=== PATIENT | female | born 1965 | race Caucasian/White ===

== ENCOUNTER 2021-05-02 20:17 | Inpatient (IN) | payer MEDICARE, OTHER ==
[~2021-05-02] VITALS: Ht 160 cm; Wt 136.3 kg
[2021-05-02] MEDS ORDERED: MORPHINE SULFATE 4 MG/1 ML DISP.SYRIN IM ONE (21:45)
[2021-05-02 22:22] LABS: BASOPHILS # (AUTO) 0.1 K/uL (0.0-8.0); BASOPHILS % (AUTO) 0.8 % (0.0-2.0); EOSINOPHILS # (AUTO) 0.3 K/uL (0.0-0.7); EOSINOPHILS % (AUTO) 3.4 % (0.0-7.0); HEMATOCRIT 36.8 % (31.2-41.9); HEMOGLOBIN 12.1 g/dL (10.9-14.3); LYMPHOCYTES # (AUTO) 3.2 K/uL (20.0-40.0); LYMPHOCYTES % (AUTO) 34.8 % (20.5-51.5); MEAN CORPUSCULAR HEMOGLOBIN 31.1 uug (24.7-32.8); MEAN CORPUSCULAR HGB CONC 33 g/dL (32.3-35.6); MEAN CORPUSCULAR VOLUME 94.4 fL (75.5-95.3); MONOCYTES # (AUTO) 0.7 K/uL (2.0-10.0); MONOCYTES % (AUTO) 7.1 % (0.0-11.0); NEUTROPHILS % (AUTO) 53.9 % (38.5-71.5); PLATELET COUNT (AUTO) 299 K/uL (179-408); RED BLOOD CELL COUNT(AUTO) 3.89 MIL/uL (3.63-4.92); WHITE BLOOD COUNT (AUTO) 9.3 K/uL (3.8-11.8)
[2021-05-02 22:31] LABS: CARBON DIOXIDE 26 mmol/L (21-32); CHLORIDE 105 mmol/L (98-107); CREATININE 0.9 mg/dL (0.6-1.3); GLUCOSE 192 mg/dL (74-106); POTASSIUM 4.7 mmol/L (3.5-5.1); UREA NITROGEN, BLOOD 23 mg/dL (7-18)
[2021-05-02 22:43] LABS: ALANINE AMINOTRANSFERASE 14 U/L (14-59); ALKALINE PHOSPHATASE 83 U/L (50-136); ASPARTATE AMINOTRANSFERASE 9 U/L (15-37); BILIRUBIN,DIRECT < 0.1 mg/dL (0.0-0.2); BILIRUBIN,TOTAL 0.2 mg/dL (0.2-1.0); TOTAL PROTEIN, SERUM 6.6 g/dL (6.4-8.2)
--- NOTE | 2021-05-02 22:44 | NUR ---
MORPHINE 4MG GIVEN IM LEFT DELTIOD. ACCIDENTLY CHARTED IVP.
[2021-05-02] MEDS ORDERED: MORPHINE SULFATE 4 MG/1 ML DISP.SYRIN ONE (22:49)
--- NOTE | 2021-05-02 23:38 | NUR ---
COVID Negative per [facility] Glazier Regino
[2021-05-03] MEDS ORDERED: VANCOMYCIN 1G/D5W 200 ML PIGGYBACK IV ONE (00:45)
[2021-05-03] MEDS ORDERED: POLY17PO4 PO (01:34)
[2021-05-03] MEDS ORDERED: SENN-261 PO (01:34)
[2021-05-03] MEDS ORDERED: NITR0.4T SL (01:34)
[2021-05-03] MEDS ORDERED: ATOR40TA PO (01:34)
[2021-05-03] MEDS ORDERED: ATROPINE (01:34)
[2021-05-03] MEDS ORDERED: MIRT-93 PO (01:34)
[2021-05-03] MEDS ORDERED: PANT40TA49 PO (01:34)
[2021-05-03] MEDS ORDERED: MAGN500P40 PO (01:34)
[2021-05-03] MEDS ORDERED: FLUT16SP16 NS (01:34)
[2021-05-03] MEDS ORDERED: OXYC5TAB3 PO (01:34)
[2021-05-03] MEDS ORDERED: DIVA-78 PO (01:34)
[2021-05-03] MEDS ORDERED: FOLI1TAB94 PO (01:34)
[2021-05-03] MEDS ORDERED: PIOG15TA8 PO (01:34)
[2021-05-03] MEDS ORDERED: METF-442 PO (01:34)
[2021-05-03] MEDS ORDERED: CLOZ100T32 PO ×2 (01:34)
[2021-05-03] MEDS ORDERED: CYCL5TAB PO (01:34)
[2021-05-03] MEDS ORDERED: MULT-594 PO (01:34)
[2021-05-03] MEDS ORDERED: ACET-2154 PO (01:34)
[2021-05-03] MEDS ORDERED: PROM118S5 PO (01:34)
[2021-05-03] MEDS ORDERED: ALBU2.5V13 IH (01:34)
[2021-05-03] MEDS ORDERED: FURO20TA4 PO (01:34)
[2021-05-03] MEDS ORDERED: GLIP5TAB13 PO (01:34)
[2021-05-03] MEDS ORDERED: ASPI81TA31 PO (01:34)
[2021-05-03] MEDS ORDERED: LOSA50TA39 PO (01:34)
[2021-05-03] MEDS ORDERED: CLON0.1T PO (01:34)
[2021-05-03] MEDS ORDERED: MAGN400C PO (01:34)
[2021-05-03] MEDS ORDERED: CHLO100T24 PO (01:34)
[2021-05-03] MEDS ORDERED: MELO-105 PO (01:34)
[2021-05-03] MEDS ORDERED: MAG30ORA PO (01:34)
[2021-05-03] MEDS ORDERED: ZOLP5TAB8 PO (01:34)
[2021-05-03] MEDS ORDERED: BISA10SU61 RC (01:34)
[2021-05-03] MEDS ORDERED: CALC-494 PO (01:34)
[2021-05-03] MEDS ORDERED: CYAN100T44 PO (01:34)
[2021-05-03] MEDS ORDERED: NA P133E RC (01:34)
[2021-05-03] MEDS ORDERED: MORPHINE SULFATE 4 MG/1 ML DISP.SYRIN ONE (01:44)
[2021-05-03] MEDS ORDERED: MORPHINE SULFATE 4 MG/1 ML DISP.SYRIN IV ONE (01:45)
[2021-05-03] MEDS ORDERED: ONDANSETRON 4 MG/2 ML VIAL IV PRN (02:00)
[2021-05-03] MEDS ORDERED: CLONIDINE HCL 0.1 MG TABLET PO PRN (02:00)
[2021-05-03] MEDS ORDERED: MAG HYDROX/AL HYDROX/SIMETH 30 ML LIQUID UDC PO PRN (02:00)
[2021-05-03] MEDS ORDERED: BISACODYL 10 MG SUPP.RECT RC PRN (02:00)
[2021-05-03] MEDS ORDERED: DEXTROSE 50% 50 ML DISP.SYRIN IV PRN (02:00)
[2021-05-03] MEDS ORDERED: ACETAMINOPHEN 325 MG TABLET PO PRN (02:00)
[2021-05-03] MEDS ORDERED: ALBUTEROL SULFATE 2.5 MG/ 0.5 ML NEBU IH PRN (02:00)
[2021-05-03] MEDS ORDERED: FLEET ENEMA 133 ML BOTTLE RC PRN (02:00)
[2021-05-03] MEDS ORDERED: NITROGLYCERIN 0.4 MG/TAB BOTTLE SL PRN (02:00)
--- NOTE | 2021-05-03 02:00 | NUR ---
Patient has $1,642.00 in brady. Patient refused to have valuables placed in safe.
--- NOTE | 2021-05-03 02:03 | NUR ---
Transfered to 3rd floor Med Surg floor via transport team.
[2021-05-03 02:25] VITALS: BP 120/58
[2021-05-03] MEDS ORDERED: MAGNESIUM HYDROXIDE 30 ML LIQUID UDC PO PRN (02:45)
[2021-05-03] MEDS ORDERED: CYCLOBENZAPRINE HCL 10 MG TABLET PO PRN (02:45)
[2021-05-03] MEDS ORDERED: PIPERACILLIN SODIUM/TAZOBACTAM 3.375 G in IV DEXTROSE 5% 50 ML IV ONE (03:00)
[2021-05-03] MEDS ORDERED: PIPERACILLIN/TAZOBACTAM/D5W 50 ML IV ONE (04:04)
[2021-05-03] MEDS: OXYCODONE HCL 5 MG TABLET PO PRN ×2 (04:45→17:17)
[2021-05-03] MEDS ORDERED: PANTOPRAZOLE SODIUM 40 MG TABLET.DR PO SCH (07:00)
[2021-05-03] MEDS: PANTOPRAZOLE SODIUM 40 MG TABLET.DR PO SCH (07:28)
[2021-05-03 08:09] VITALS: BP 126/64
[2021-05-03] MEDS: BLOOD SUGAR DIAGNOSTIC 1 EACH STRIP VI SCH ×4 (08:13→21:11)
[2021-05-03] MEDS: INSULIN REGULAR, HUMAN 300 UNIT/3 ML VIAL SQ PRN ×4 (08:20→21:35)
[2021-05-03] MEDS: METFORMIN HCL 500 MG TABLET PO SCH ×2 (08:22→17:11)
[2021-05-03] MEDS: MELOXICAM 7.5 MG TABLET PO SCH (08:39)
[2021-05-03] MEDS: LOSARTAN POTASSIUM 50 MG TABLET PO SCH (08:39)
[2021-05-03] MEDS: FOLIC ACID 1 MG TABLET PO SCH (08:39)
[2021-05-03] MEDS: MULTIVITAMINS,THERAPEUTIC TABLET PO SCH (08:39)
[2021-05-03] MEDS: DIVALPROEX 500 MG TABLET.DR PO SCH ×2 (08:39→17:11)
[2021-05-03] MEDS: MIRALAX 17 GM POWD.PACK PO SCH (08:40)
[2021-05-03] MEDS: FUROSEMIDE 20 MG TABLET PO SCH (08:41)
[2021-05-03] MEDS: ASPIRIN 81 MG TAB.CHEW PO SCH (08:49)
[2021-05-03] MEDS: FLUTICASONE PROP NASAL SPRAY 16 GM BOTTLE NS SCH (08:49)
[2021-05-03] MEDS: MAGNESIUM OXIDE 400 MG TABLET PO SCH (08:49)
[2021-05-03] MEDS: CLOZAPINE 25 MG TABLET PO SCH (08:52)
[2021-05-03] MEDS ORDERED: CYANOCOBALAMIN 100 MCG TABLET PO SCH (09:00)
[2021-05-03] MEDS ORDERED: CLOZAPINE 100 MG TABLET PO SCH ×2 (09:00)
[2021-05-03] MEDS ORDERED: PIOGLITAZONE HCL 15 MG TABLET PO SCH (09:00)
[2021-05-03 09:44] LABS: BASOPHILS # (AUTO) 0.1 K/uL (0.0-8.0); BASOPHILS % (AUTO) 0.9 % (0.0-2.0); EOSINOPHILS # (AUTO) 0.3 K/uL (0.0-0.7); EOSINOPHILS % (AUTO) 4.6 % (0.0-7.0); HEMATOCRIT 35.2 % (31.2-41.9); HEMOGLOBIN 11.7 g/dL (10.9-14.3); LYMPHOCYTES % (AUTO) 39.3 % (20.5-51.5); MEAN CORPUSCULAR HEMOGLOBIN 31.8 uug (24.7-32.8); MEAN CORPUSCULAR HGB CONC 33 g/dL (32.3-35.6); MEAN CORPUSCULAR VOLUME 95.8 fL (75.5-95.3); MONOCYTES # (AUTO) 0.5 K/uL (2.0-10.0); MONOCYTES % (AUTO) 6.2 % (0.0-11.0); NEUTROPHILS # (AUTO) 3.7 K/uL (1.8-8.9); PLATELET COUNT (AUTO) 264 K/uL (179-408); RED BLOOD CELL COUNT(AUTO) 3.68 MIL/uL (3.63-4.92); WHITE BLOOD COUNT (AUTO) 7.5 K/uL (3.8-11.8)
[2021-05-03] MEDS: PIPERACILLIN SODIUM/TAZOBACTAM 3.375 G in IV DEXTROSE 5% 50 ML IV SCH ×3 (09:49→21:39)
[2021-05-03 10:00] LABS: BILIRUBIN,TOTAL 0.3 mg/dL (0.2-1.0); CREATININE 0.9 mg/dL (0.6-1.3); MAGNESIUM 1.9 mg/dL (1.8-2.4); PHOSPHOROUS 3.8 mg/dL (2.5-4.9); POTASSIUM 4.2 mmol/L (3.5-5.1)
[2021-05-03] MEDS: VANCOMYCIN IV 2,000 MG in IV DEXTROSE 5% 500 ML IV SCH (10:06)
[2021-05-03 10:08] LABS: THYROID STIMULATING HORMONE 1.969 mIU/mL (0.358-3.740)
--- NOTE | 2021-05-03 10:38 | NUR ---
Offered oxycodone for pain. Patient says it does not work. Says the doctor changed the dose at the nursing facility. Wants more pain medication. Patient request for diet coke sent to dietitian. Patient refuses IV antibiotics. Says her IV hurts. Difficult IV stick will request midline. Jakob Romo RN
[2021-05-03 12:12] VITALS: BP 132/62
[2021-05-03 16:06] VITALS: BP 108/60
[2021-05-03] MEDS ORDERED: MORPHINE SULFATE 2 MG/1 ML DISP.SYRIN IV PRN (17:30)
[2021-05-03 20:18] LABS: *BILIRUBIN,URIN NEGATIVE (NEGATIVE); *BLOOD, URINE NEGATIVE (NEGATIVE); *CLARITY,URINE CLEAR (CLEAR); *COLOR,URINE YELLOW (YELLOW); *KETONES,URINE NEGATIVE (NEGATIVE); *UROBILINOGEN,URINE 0.2 E.U./dl (NORMAL); LEUKOCYTE ESTERASE ,URINE NEGATIVE (NEGATIVE); NITRITE, URINE NEGATIVE (NEGATIVE); UGLUCOSE 1+ (NEGATIVE)
[2021-05-03 20:28] VITALS: BP 115/55
[2021-05-03 20:30] LABS: BACTERIA,URINE NONE SEEN /HPF (NONE SEEN); RBC,URINE 0-3 /HPF (0-3); SQUAMOUS EPITHELIAL CELL,UR FEW /HPF (NONE SEEN); WBC,URINE 0-3 /HPF (0-3); YEAST,URINE MODERATE /HPF (NONE SEEN)
[2021-05-03 20:40] LABS: EOSINOPHILS % (MANUAL) 4 % (0-8); LYMPHOCYTES % (MANUAL) 44 % (20-40); MONOCYTES % (MANUAL) 3 % (2-10); NEUTROPHILS % (MANUAL) 49 % (42-75)
[2021-05-03] MEDS ORDERED: ATORVASTATIN 40 MG TABLET PO SCH (21:00)
[2021-05-03] MEDS ORDERED: INSULIN GLARGINE,HUM 300 UNITS/3 ML CARTRIDGE SQ SCH (21:00)
[2021-05-03] MEDS: chlorproMAZINE 25 MG TABLET PO SCH (21:05)
[2021-05-03] MEDS: SENNOSIDES 1 TABLET PO SCH (21:05)
[2021-05-03] MEDS: MIRTAZAPINE 15 MG TABLET PO SCH (21:05)
[2021-05-03] MEDS: ZOLPIDEM 5 MG TABLET PO PRN (21:06)
[2021-05-03] MEDS: CLOZAPINE 100 MG TABLET PO SCH (21:06)
[2021-05-03] MEDS: ATORVASTATIN 10 MG TABLET PO SCH (21:12)
[2021-05-04 04:00] VITALS: BP 110/63
[2021-05-04] MEDS: VANCOMYCIN IV 2,000 MG in IV DEXTROSE 5% 500 ML IV SCH ×2 (04:31→22:42)
[2021-05-04] MEDS: PIPERACILLIN SODIUM/TAZOBACTAM 3.375 G in IV DEXTROSE 5% 50 ML IV SCH ×3 (04:31→16:16)
--- NOTE | 2021-05-04 05:15 | NUR ---
Shift note: Received pt alert and oriented x4 pt requested sugar free pudding and black coffee which was given. Pt c/o pain was given morphine iv for pain 06/28 and pt blood sugar 343 gave 8 units of regular and 16 units of scheduled lantus no signs of diabetic noted. Will continue to monitor and endorse to am nurse.
--- NOTE | 2021-05-04 05:21 | NUR ---
pt was given antibiotic as ordered no adverse reaction noted.
[2021-05-04] MEDS: MORPHINE SULFATE 4 MG/1 ML DISP.SYRIN IV PRN ×4 (06:28→21:24)
[2021-05-04] MEDS: PANTOPRAZOLE SODIUM 40 MG TABLET.DR PO SCH (06:37)
[2021-05-04] MEDS: BLOOD SUGAR DIAGNOSTIC 1 EACH STRIP VI SCH ×4 (06:39→21:46)
[2021-05-04 06:43] LABS: BASOPHILS # (AUTO) 0.1 K/uL (0.0-8.0); BASOPHILS % (AUTO) 1.2 % (0.0-2.0); EOSINOPHILS # (AUTO) 0.3 K/uL (0.0-0.7); EOSINOPHILS % (AUTO) 4.8 % (0.0-7.0); HEMATOCRIT 37.4 % (31.2-41.9); HEMOGLOBIN 12.4 g/dL (10.9-14.3); LYMPHOCYTES # (AUTO) 2.6 K/uL (20.0-40.0); LYMPHOCYTES % (AUTO) 43.1 % (20.5-51.5); MEAN CORPUSCULAR HEMOGLOBIN 31.5 uug (24.7-32.8); MEAN CORPUSCULAR HGB CONC 33 g/dL (32.3-35.6); MEAN CORPUSCULAR VOLUME 95.2 fL (75.5-95.3); MONOCYTES # (AUTO) 0.4 K/uL (2.0-10.0); NEUTROPHILS # (AUTO) 2.7 K/uL (1.8-8.9); NEUTROPHILS % (AUTO) 44.9 % (38.5-71.5); PLATELET COUNT (AUTO) 284 K/uL (179-408); RED BLOOD CELL COUNT(AUTO) 3.93 MIL/uL (3.63-4.92)
[2021-05-04 07:17] LABS: THYROID STIMULATING HORMONE 1.616 mIU/mL (0.358-3.740)
[2021-05-04 07:26] LABS: CREATININE 0.9 mg/dL (0.6-1.3); MAGNESIUM 2.1 mg/dL (1.8-2.4); POTASSIUM 4.5 mmol/L (3.5-5.1)
--- NOTE | 2021-05-04 07:30 | NUR ---
received change of shift report. pt in bed resting, pt appears to be angry by the tone of her voice and comments. pt has eagle cellulitis of the lower extremities, pt on room air, no signs of distress, no reports of pain at this time. pt has IV on the right FA 22g, patent and intact. will continue with plan of care.
[2021-05-04] MEDS: METFORMIN HCL 500 MG TABLET PO SCH ×2 (08:33→17:03)
[2021-05-04] MEDS: MULTIVITAMINS,THERAPEUTIC TABLET PO SCH (08:33)
[2021-05-04] MEDS: MELOXICAM 7.5 MG TABLET PO SCH (08:33)
[2021-05-04] MEDS: ASPIRIN 81 MG TAB.CHEW PO SCH (08:33)
[2021-05-04] MEDS: FUROSEMIDE 20 MG TABLET PO SCH (08:33)
[2021-05-04] MEDS: MAGNESIUM OXIDE 400 MG TABLET PO SCH (08:33)
[2021-05-04] MEDS: DIVALPROEX 500 MG TABLET.DR PO SCH ×2 (08:33→16:18)
[2021-05-04] MEDS: CYANOCOBALAMIN 1,000 MCG TABLET PO SCH (08:33)
[2021-05-04] MEDS: FOLIC ACID 1 MG TABLET PO SCH (08:34)
[2021-05-04] MEDS: MIRALAX 17 GM POWD.PACK PO SCH (08:34)
[2021-05-04] MEDS: FLUTICASONE PROP NASAL SPRAY 16 GM BOTTLE NS SCH (08:34)
[2021-05-04] MEDS: NICOTINE 21 MG/24HR PATCH TD SCH (08:34)
[2021-05-04] MEDS: LOSARTAN POTASSIUM 50 MG TABLET PO SCH (08:39)
[2021-05-04] MEDS: CLOZAPINE 25 MG TABLET PO SCH (08:40)
[2021-05-04] MEDS: INSULIN REGULAR, HUMAN 300 UNIT/3 ML VIAL SQ PRN ×4 (08:46→21:49)
[2021-05-04 11:54] VITALS: BP 124/39
[2021-05-04 16:00] VITALS: BP 124/64
--- NOTE | 2021-05-04 16:16 | NUR ---
pt states that OXYIR does not work for her and only wants morphine.
[2021-05-04 20:00] VITALS: BP 117/69
[2021-05-04] MEDS ORDERED: CEFEPIME HCL 1 G in IV DEXTROSE 5% 50 ML IV SCH (21:00)
[2021-05-04] MEDS ORDERED: INSULIN GLARGINE,HUM 300 UNITS/3 ML CARTRIDGE SQ SCH (21:00)
--- NOTE | 2021-05-04 21:30 | NUR ---
Received report from Kayla CHRISTINE. Pt is awake and verbally responsive, able to make needs known. Complains of pain of 9/10 on BLE. Pain medication administered as ordered. No s/s of respiratory distress noted. safety measures initiated, call light within reach, will continue to monitor.
[2021-05-04] MEDS: SENNOSIDES 1 TABLET PO SCH (21:38)
[2021-05-04] MEDS: ATORVASTATIN 10 MG TABLET PO SCH (21:39)
[2021-05-04] MEDS: chlorproMAZINE 25 MG TABLET PO SCH (21:52)
[2021-05-04] MEDS: MIRTAZAPINE 15 MG TABLET PO SCH (21:53)
[2021-05-04] MEDS: CLOZAPINE 100 MG TABLET PO SCH (21:54)
[2021-05-05] MEDS: MORPHINE SULFATE 4 MG/1 ML DISP.SYRIN IV PRN ×7 (00:37→22:02)
--- NOTE | 2021-05-05 00:43 | NUR ---
At 0037h morphine 4mg prn given for 9/10 pain scale. Pt tolerated it well. Will continue to monitor.
[2021-05-05] MEDS: ZOLPIDEM 5 MG TABLET PO PRN (01:08)
--- NOTE | 2021-05-05 01:08 | NUR ---
Ambien 5mg prn given to pt as per pt request. Pt tolerated it well Will continue to monitor.
[2021-05-05 04:00] VITALS: BP 146/78
[2021-05-05] MEDS: PANTOPRAZOLE SODIUM 40 MG TABLET.DR PO SCH ×2 (06:08→09:04)
--- NOTE | 2021-05-05 06:27 | NUR ---
Slept intermittently through the night, no acute distress noted. Pain medication administered Q3H as ordered. IV antibiotics administered. Tolerated medications well. Snacks provided per pt's requests. Safety measures maintained. all needs attended to and met.
[2021-05-05] MEDS: BLOOD SUGAR DIAGNOSTIC 1 EACH STRIP VI SCH ×4 (06:43→21:25)
--- NOTE | 2021-05-05 07:15 | NUR ---
RECEIVED PATIENT IN BED AWAKE, HOB ELEVATED. NO COMPLAINS OF SOB OR DISCOMFORT NOTED. CALL LIGHT WITHIN REACH. WILL CONTINUE TO MONITOR.
[2021-05-05] MEDS: MIRALAX 17 GM POWD.PACK PO SCH (09:04)
[2021-05-05] MEDS: CYANOCOBALAMIN 1,000 MCG TABLET PO SCH (09:04)
[2021-05-05] MEDS: FLUTICASONE PROP NASAL SPRAY 16 GM BOTTLE NS SCH (09:04)
[2021-05-05] MEDS: MELOXICAM 7.5 MG TABLET PO SCH (09:04)
[2021-05-05] MEDS: DIVALPROEX 500 MG TABLET.DR PO SCH ×2 (09:05→17:05)
[2021-05-05] MEDS: FUROSEMIDE 20 MG TABLET PO SCH (09:05)
[2021-05-05] MEDS: MULTIVITAMINS,THERAPEUTIC TABLET PO SCH (09:05)
[2021-05-05] MEDS: METFORMIN HCL 500 MG TABLET PO SCH ×2 (09:05→17:05)
[2021-05-05] MEDS: ASPIRIN 81 MG TAB.CHEW PO SCH (09:05)
[2021-05-05] MEDS: FOLIC ACID 1 MG TABLET PO SCH (09:05)
[2021-05-05] MEDS: MAGNESIUM OXIDE 400 MG TABLET PO SCH (09:05)
[2021-05-05] MEDS: NICOTINE 21 MG/24HR PATCH TD SCH (09:07)
[2021-05-05] MEDS: CLOZAPINE 25 MG TABLET PO SCH (09:09)
[2021-05-05] MEDS: INSULIN REGULAR, HUMAN 300 UNIT/3 ML VIAL SQ PRN ×4 (09:22→21:27)
[2021-05-05] MEDS: LOSARTAN POTASSIUM 50 MG TABLET PO SCH (09:33)
[2021-05-05 10:59] VITALS: BP 119/64
[2021-05-05] MEDS: CEFEPIME HCL 1 G in IV DEXTROSE 5% 50 ML IV SCH ×2 (15:03→21:11)
[2021-05-05 15:49] VITALS: BP 124/56
[2021-05-05] MEDS: VANCOMYCIN IV 2,000 MG in IV DEXTROSE 5% 500 ML IV SCH (17:05)
--- NOTE | 2021-05-05 18:18 | NUR ---
patient in bed awake, patient stable, midline intact. no complains of any pain or discomfort at this time.call light within reach will continue to monitor.
--- NOTE | 2021-05-05 19:20 | NUR ---
Received pt in bed, awake and verbally responsive, able to make needs known. no signs of acute distress. Safety measures initiated, call light within reach, will continue to monitor.
--- NOTE | 2021-05-05 19:42 | NUR ---
PATIENT IN BED AWAKE, NO COMPLAINS OF ANY PAIN OR DISCOMFORT AT THIS TIME CALL LIGHT WITHIN REACH. WILL REPORT TO ONCOMING SHIFT.
[2021-05-05 20:24] VITALS: BP 124/58
[2021-05-05] MEDS: SENNOSIDES 1 TABLET PO SCH (21:17)
[2021-05-05] MEDS: chlorproMAZINE 25 MG TABLET PO SCH (21:18)
[2021-05-05] MEDS: MIRTAZAPINE 15 MG TABLET PO SCH (21:19)
[2021-05-05] MEDS: CLOZAPINE 100 MG TABLET PO SCH (21:19)
[2021-05-05] MEDS: ATORVASTATIN 10 MG TABLET PO SCH (21:19)
[2021-05-05] MEDS: INSULIN GLARGINE,HUM 300 UNITS/3 ML CARTRIDGE SQ SCH (21:27)
[2021-05-06] MEDS: MORPHINE SULFATE 4 MG/1 ML DISP.SYRIN IV PRN ×6 (01:07→21:00)
[2021-05-06 04:00] VITALS: BP 107/45
--- NOTE | 2021-05-06 06:14 | NUR ---
Pain medications administered as ordered. tolerated medications well. No signs of acute distress. Pending wound consult. will endorse to incoming nurse.
--- NOTE | 2021-05-06 06:32 | NUR ---
Pt refused Protonix medication and glucose check this morning. Pt also insisting that she didn't get her pain medication in spite of consistent administration to her as ordered. Will endorse to incoming nurse.
[2021-05-06 07:17] LABS: BASOPHILS # (AUTO) 0.1 K/uL (0.0-8.0); BASOPHILS % (AUTO) 0.8 % (0.0-2.0); EOSINOPHILS # (AUTO) 0.3 K/uL (0.0-0.7); HEMATOCRIT 38.2 % (31.2-41.9); HEMOGLOBIN 12.8 g/dL (10.9-14.3); LYMPHOCYTES # (AUTO) 2.1 K/uL (20.0-40.0); LYMPHOCYTES % (AUTO) 29.8 % (20.5-51.5); MEAN CORPUSCULAR HEMOGLOBIN 31.6 uug (24.7-32.8); MEAN CORPUSCULAR HGB CONC 34 g/dL (32.3-35.6); MEAN CORPUSCULAR VOLUME 94.3 fL (75.5-95.3); MONOCYTES # (AUTO) 0.4 K/uL (2.0-10.0); MONOCYTES % (AUTO) 5.9 % (0.0-11.0); NEUTROPHILS # (AUTO) 4.1 K/uL (1.8-8.9); NEUTROPHILS % (AUTO) 59.5 % (38.5-71.5); PLATELET COUNT (AUTO) 284 K/uL (179-408); RED BLOOD CELL COUNT(AUTO) 4.05 MIL/uL (3.63-4.92); WHITE BLOOD COUNT (AUTO) 6.9 K/uL (3.8-11.8)
[2021-05-06 07:36] LABS: CREATININE 0.9 mg/dL (0.6-1.3); MAGNESIUM 1.9 mg/dL (1.8-2.4); POTASSIUM 4.4 mmol/L (3.5-5.1)
[2021-05-06] MEDS: BLOOD SUGAR DIAGNOSTIC 1 EACH STRIP VI SCH ×4 (09:05→20:59)
[2021-05-06] MEDS: INSULIN REGULAR, HUMAN 300 UNIT/3 ML VIAL SQ PRN ×4 (09:06→21:24)
[2021-05-06] MEDS: METFORMIN HCL 500 MG TABLET PO SCH (09:08)
[2021-05-06] MEDS: MELOXICAM 7.5 MG TABLET PO SCH (09:08)
[2021-05-06] MEDS: CYANOCOBALAMIN 1,000 MCG TABLET PO SCH (09:08)
[2021-05-06] MEDS: LOSARTAN POTASSIUM 50 MG TABLET PO SCH (09:08)
[2021-05-06] MEDS: CLOZAPINE 25 MG TABLET PO SCH (09:09)
[2021-05-06] MEDS: MIRALAX 17 GM POWD.PACK PO SCH (09:09)
[2021-05-06] MEDS: MAGNESIUM OXIDE 400 MG TABLET PO SCH (09:09)
[2021-05-06] MEDS: MULTIVITAMINS,THERAPEUTIC TABLET PO SCH (09:09)
[2021-05-06] MEDS: DIVALPROEX 500 MG TABLET.DR PO SCH ×2 (09:09→17:51)
[2021-05-06] MEDS: FUROSEMIDE 20 MG TABLET PO SCH (09:09)
[2021-05-06] MEDS: FOLIC ACID 1 MG TABLET PO SCH (09:09)
[2021-05-06] MEDS: ASPIRIN 81 MG TAB.CHEW PO SCH (09:09)
[2021-05-06] MEDS: FLUTICASONE PROP NASAL SPRAY 16 GM BOTTLE NS SCH (09:10)
[2021-05-06] MEDS: NICOTINE 21 MG/24HR PATCH TD SCH (09:10)
[2021-05-06] MEDS: INSULIN GLARGINE,HUM 300 UNITS/3 ML CARTRIDGE SQ SCH ×2 (09:15→21:24)
[2021-05-06] MEDS: CEFEPIME HCL 1 G in IV DEXTROSE 5% 50 ML IV SCH ×2 (09:29→20:49)
--- NOTE | 2021-05-06 11:49 | NUR ---
WOUND CARE CONSULT: PT PRESENTS WITH DRY ESCHAR TO RT HEEL, PRESENT ON ADMISSION. DR FARFAN NOTIFIED OF DPM CONSULT REQUEST. PT IS INDEPENDENT WITH BED MOBILITY AND CONTINENT. MD IN AGREEMENT WITH PLAN OF CARE.
[2021-05-06] MEDS ORDERED: FLUCONAZOLE 100 MG TABLET PO ONE (13:30)
[2021-05-06 16:36] VITALS: BP 112/51
[2021-05-06] MEDS: VANCOMYCIN IV 2,000 MG in IV DEXTROSE 5% 500 ML IV SCH (18:00)
[2021-05-06] MEDS: THERAHONEY GEL 1.5 OZ TUBE TOP SCH (18:01)
[2021-05-06 20:00] VITALS: BP 118/67
--- NOTE | 2021-05-06 20:00 | NUR ---
pt resting in bed, call light within reach, no reports of pain at this time. 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 pt on room air, no signs of distress noted. pt ambulatory, BRP, bed low and locked will endorse to oncoming nurse.
[2021-05-06] MEDS: MIRTAZAPINE 15 MG TABLET PO SCH (20:50)
[2021-05-06] MEDS: ATORVASTATIN 10 MG TABLET PO SCH (20:51)
[2021-05-06] MEDS: SENNOSIDES 1 TABLET PO SCH (20:51)
[2021-05-06] MEDS: chlorproMAZINE 25 MG TABLET PO SCH (20:51)
[2021-05-06] MEDS: CLOZAPINE 100 MG TABLET PO SCH (20:53)
--- NOTE | 2021-05-06 21:04 | NUR ---
Patient in bed alert and able to make needs known.C/o pain on right foot.Medicated with Morphine IVP with good effect.Noted wound dressing was out. Wound care tx provided.Patient compliant with medication.Midline on left upper arm patent and intact.Administered IV ATB. No a/r noted. VSS .
[2021-05-06] MEDS: ZOLPIDEM 5 MG TABLET PO PRN (23:20)
[2021-05-07 04:00] VITALS: BP 158/57
[2021-05-07] MEDS: PANTOPRAZOLE SODIUM 40 MG TABLET.DR PO SCH (06:09)
[2021-05-07] MEDS: MORPHINE SULFATE 4 MG/1 ML DISP.SYRIN IV PRN ×7 (06:18→23:51)
[2021-05-07] MEDS: BLOOD SUGAR DIAGNOSTIC 1 EACH STRIP VI SCH ×4 (06:42→20:42)
[2021-05-07 07:13] LABS: CREATININE 0.8 mg/dL (0.6-1.3); POTASSIUM 4.4 mmol/L (3.5-5.1)
--- NOTE | 2021-05-07 07:15 | NUR ---
RECEIVED PATIENT AWAKE IN BED, STABLE, HOB ELEVATED. NO SIGNS OF ANY PAIN OR DISCOMFORT. CALL LIGHT WITHIN REACH. WILL CONTINUE TO MONITOR.
[2021-05-07] MEDS: MIRALAX 17 GM POWD.PACK PO SCH (08:56)
[2021-05-07] MEDS: CEFEPIME HCL 1 G in IV DEXTROSE 5% 50 ML IV SCH (08:56)
[2021-05-07] MEDS: NICOTINE 21 MG/24HR PATCH TD SCH ×2 (08:56→09:00)
[2021-05-07] MEDS: FOLIC ACID 1 MG TABLET PO SCH (08:57)
[2021-05-07] MEDS: MAGNESIUM OXIDE 400 MG TABLET PO SCH (08:57)
[2021-05-07] MEDS: CYANOCOBALAMIN 1,000 MCG TABLET PO SCH (08:57)
[2021-05-07] MEDS: MULTIVITAMINS,THERAPEUTIC TABLET PO SCH (08:57)
[2021-05-07] MEDS: MELOXICAM 7.5 MG TABLET PO SCH (08:57)
[2021-05-07] MEDS: FUROSEMIDE 20 MG TABLET PO SCH (08:57)
[2021-05-07] MEDS: DIVALPROEX 500 MG TABLET.DR PO SCH ×2 (08:57→16:19)
[2021-05-07] MEDS: FLUTICASONE PROP NASAL SPRAY 16 GM BOTTLE NS SCH ×2 (08:57→09:00)
[2021-05-07] MEDS: ASPIRIN 81 MG TAB.CHEW PO SCH (08:58)
[2021-05-07] MEDS: LOSARTAN POTASSIUM 50 MG TABLET PO SCH (08:58)
[2021-05-07] MEDS: CLOZAPINE 25 MG TABLET PO SCH (08:59)
[2021-05-07] MEDS: INSULIN REGULAR, HUMAN 300 UNIT/3 ML VIAL SQ PRN ×4 (09:04→20:32)
--- NOTE | 2021-05-07 09:05 | NUR ---
The patient is having sound sleep. RN Aurea requested to come back later for the scan.
[2021-05-07] MEDS: INSULIN GLARGINE,HUM 300 UNITS/3 ML CARTRIDGE SQ SCH (09:32)
[2021-05-07] MEDS: THERAHONEY GEL 1.5 OZ TUBE TOP SCH (09:34)
[2021-05-07] MEDS ORDERED: ALBUTEROL SULFATE 2.5 MG/3 ML NEBU NEB PRN (11:15)
[2021-05-07 15:52] VITALS: BP 108/56
[2021-05-07] MEDS: VANCOMYCIN IV 2,000 MG in IV DEXTROSE 5% 500 ML IV SCH (17:20)
--- NOTE | 2021-05-07 18:51 | NUR ---
patient in bed awake, hob elevated, no complains of pain or discomfort at this time. call light within reach. will report to oncoming shift.
--- NOTE | 2021-05-07 19:20 | NUR ---
Received pt in bed, awake and verbally responsive, denies any pain or discomfort. No s/s of acute distress. Safety measures initiated, call light within reach, will continue to monitor.
[2021-05-07] MEDS: chlorproMAZINE 25 MG TABLET PO SCH (20:18)
[2021-05-07] MEDS: ATORVASTATIN 10 MG TABLET PO SCH (20:19)
[2021-05-07] MEDS: MIRTAZAPINE 15 MG TABLET PO SCH (20:19)
[2021-05-07] MEDS: SENNOSIDES 1 TABLET PO SCH (20:19)
[2021-05-07] MEDS: CLOZAPINE 100 MG TABLET PO SCH (20:20)
[2021-05-07 20:24] VITALS: BP 118/61
[2021-05-07] MEDS: CEFEPIME HCL 2 G in IV DEXTROSE 5% 100 ML IV SCH (20:41)
[2021-05-07] MEDS ORDERED: INSULIN GLARGINE,HUM 300 UNITS/3 ML CARTRIDGE SQ SCH (21:00)
--- NOTE | 2021-05-07 21:00 | NUR ---
Notified Dr. Pradhan of patient's BS of [id number]. Received an order to increase Lantus qHS to 40 units. Medication administered. Pt tolerated medication well.
[2021-05-08] MEDS: ZOLPIDEM 5 MG TABLET PO PRN (01:19)
--- NOTE | 2021-05-08 06:37 | NUR ---
Slept intermittently through the night, no signs of acute distress. Due medications administered as ordered. Pt tolerated medications well. Pt refused AC Glucose check and Protonix medication. Will endorse to incoming nurse.
[2021-05-08] MEDS: PANTOPRAZOLE SODIUM 40 MG TABLET.DR PO SCH (07:00)
[2021-05-08 07:05] LABS: BASOPHILS % (AUTO) 0.6 % (0.0-2.0); EOSINOPHILS # (AUTO) 0.2 K/uL (0.0-0.7); EOSINOPHILS % (AUTO) 3.5 % (0.0-7.0); HEMATOCRIT 34.8 % (31.2-41.9); HEMOGLOBIN 11.6 g/dL (10.9-14.3); LYMPHOCYTES # (AUTO) 1.5 K/uL (20.0-40.0); LYMPHOCYTES % (AUTO) 26.1 % (20.5-51.5); MEAN CORPUSCULAR HEMOGLOBIN 31.6 uug (24.7-32.8); MEAN CORPUSCULAR HGB CONC 33 g/dL (32.3-35.6); MEAN CORPUSCULAR VOLUME 94.5 fL (75.5-95.3); MONOCYTES # (AUTO) 0.5 K/uL (2.0-10.0); MONOCYTES % (AUTO) 8.5 % (0.0-11.0); NEUTROPHILS # (AUTO) 3.5 K/uL (1.8-8.9); NEUTROPHILS % (AUTO) 61.3 % (38.5-71.5); PLATELET COUNT (AUTO) 230 K/uL (179-408); RED BLOOD CELL COUNT(AUTO) 3.68 MIL/uL (3.63-4.92); WHITE BLOOD COUNT (AUTO) 5.7 K/uL (3.8-11.8)
[2021-05-08 07:34] LABS: CREATININE 0.9 mg/dL (0.6-1.3); MAGNESIUM 2.1 mg/dL (1.8-2.4); PHOSPHOROUS 4.1 mg/dL (2.5-4.9); POTASSIUM 4.3 mmol/L (3.5-5.1)
--- NOTE | 2021-05-08 07:40 | NUR ---
RECEIVED PATIENT RESTING EASY TO AROUSE, RESPONSIVE. IN NO ACUTE DISTRESS. IV ON AMANDA INTACT. DRESSING TX TO RIGHT HEEL DRY AND INTACT. ASSISTED TO THE BATHROOM. KEPT COMFORTABLE. WILL CONTINUE TO MONITOR.
[2021-05-08] MEDS: BLOOD SUGAR DIAGNOSTIC 1 EACH STRIP VI SCH ×2 (08:02→11:29)
[2021-05-08] MEDS: INSULIN REGULAR, HUMAN 300 UNIT/3 ML VIAL SQ PRN ×2 (08:04→11:30)
[2021-05-08] MEDS: CEFEPIME HCL 2 G in IV DEXTROSE 5% 100 ML IV SCH (08:57)
[2021-05-08] MEDS: LOSARTAN POTASSIUM 50 MG TABLET PO SCH (09:00)
[2021-05-08] MEDS: MIRALAX 17 GM POWD.PACK PO SCH (09:00)
[2021-05-08] MEDS: FLUTICASONE PROP NASAL SPRAY 16 GM BOTTLE NS SCH (09:00)
[2021-05-08] MEDS ORDERED: ASPIRIN EC 81 MG TABLET.DR PO SCH (09:00)
[2021-05-08] MEDS: NICOTINE 21 MG/24HR PATCH TD SCH (09:00)
[2021-05-08] MEDS: DIVALPROEX 500 MG TABLET.DR PO SCH (09:05)
[2021-05-08] MEDS: FOLIC ACID 1 MG TABLET PO SCH (09:06)
[2021-05-08] MEDS: FUROSEMIDE 20 MG TABLET PO SCH (09:07)
[2021-05-08] MEDS: MAGNESIUM OXIDE 400 MG TABLET PO SCH (09:07)
[2021-05-08] MEDS: CYANOCOBALAMIN 1,000 MCG TABLET PO SCH (09:07)
[2021-05-08] MEDS: MELOXICAM 7.5 MG TABLET PO SCH (09:07)
[2021-05-08] MEDS: MULTIVITAMINS,THERAPEUTIC TABLET PO SCH (09:07)
[2021-05-08] MEDS: CLOZAPINE 25 MG TABLET PO SCH (09:10)
[2021-05-08] MEDS: THERAHONEY GEL 1.5 OZ TUBE TOP SCH (09:15)
[2021-05-08] MEDS: MORPHINE SULFATE 4 MG/1 ML DISP.SYRIN IV PRN ×2 (09:27→12:39)
[2021-05-08] MEDS: INSULIN GLARGINE,HUM 300 UNITS/3 ML CARTRIDGE SQ SCH (09:28)
[2021-05-08 11:52] VITALS: BP 158/72
--- NOTE | 2021-05-08 14:50 | NUR ---
SKIN CHECK DONE. PATIENT REFUSED LOWER ABDOMINAL FOLDS TO BE CHECKED DESPITE EXPLANATION. Addendum: 05/08/21 at 1508 by TIN GLASS RN ASTER CHECKED PATIENT'S BELONGINGS. PATIENT SAID SHE HAS $1642.00 IN HER BAG BUT REFUSED TO OPEN IT. PATIENT VERBALIZED SHE HAS ALL HER BELONGINGS IN GOOD CONDITION.
[2021-05-08] MEDS ORDERED: ATOR10TA PO (14:57)
[2021-05-08] MEDS ORDERED: LEVO500T90 PO (14:57)
[2021-05-08] MEDS ORDERED: Blood Sugar Diagnostic VI (14:57)
[2021-05-08] MEDS ORDERED: ASPI-618 PO (14:57)
[2021-05-08] MEDS ORDERED: OXYC10TA49 PO (14:57)
[2021-05-08] MEDS ORDERED: DEXT50DI8 IV (14:57)
[2021-05-08] MEDS ORDERED: DOXY100C2 PO (14:57)
[2021-05-08] MEDS ORDERED: CLON0.1T PO (14:57)
[2021-05-08] MEDS ORDERED: ACID1TAB4 PO (14:57)
[2021-05-08] MEDS ORDERED: INSU100V7 SQ (14:57)
[2021-05-08] MEDS ORDERED: INSU100V28 SQ (14:57)
[2021-05-08] MEDS ORDERED: MAGN296S70 PO (15:04)
--- NOTE | 2021-05-08 15:40 | NUR ---
PATIENT DISCHARGED TO [facility]. ALERT, ORIENTED, ABLE TO MAKE NEEDS KNOWN, AMBULATORY. DENIES PAIN UPON DISCHARGE. TREATMENT TO RIGHT HEEL DONE PRIOR TO DISCHARGE. NO BLEEDING NOTED. NO SIGNS OF INFECTION NOTED ON HEEL. PATIENT HAD ALL HER BELONGINGS WITH HER. IV LINE ON AMANDA REMOVED. NO COMPLICATIONS NOTED. DISCHARGE TEACHING ON DISCHARGED MEDICATIONS DONE. SHE VERBALIZED UNDERSTANDING. PICKED UP BY [facility] ACCOMPANIED BY 2 INSIDE OUTSIDE SALES REPRESENTATIVE AND HORIZONTAL BORING MILL SET UP OPERATOR. LEFT VIA GURNEY. REPORT GIVEN TO GIANNA MITCHELL AT [facility].
== END 2021-05-08 15:40 | DRG 872 ==
LOC: ER 20:17 → MEDSURG3 05-03 00:30
PROVIDERS: ADMIT Internal Medicine; ATTEND Internal Medicine
PROC: 05H633Z Insertion of Infusion Device into Left Subclavian Vein, Percutaneous Approach (ICD-10-PCS; principal; 2021-05-05)
PROC: B547ZZA Ultrasonography of Left Subclavian Vein, Guidance (ICD-10-PCS; 2021-05-05)
DX: A41.9 Sepsis, unspecified organism (principal); L03.115 Cellulitis of right lower limb; D68.59 Other primary thrombophilia; E44.0 Moderate protein-calorie malnutrition; E87.2 Acidosis; I13.0 Hypertensive heart and chronic kidney disease with heart failure and stage 1 through stage 4 chronic kidney disease, or unspecified chronic kidney disease; Z68.43 Body mass index [BMI] 50.0-59.9, adult; L97.419 Non-pressure chronic ulcer of right heel and midfoot with unspecified severity; B49 Unspecified mycosis; E11.65 Type 2 diabetes mellitus with hyperglycemia; E11.621 Type 2 diabetes mellitus with foot ulcer; E78.5 Hyperlipidemia, unspecified; E66.01 Morbid (severe) obesity due to excess calories; E11.42 Type 2 diabetes mellitus with diabetic polyneuropathy; F41.9 Anxiety disorder, unspecified; I25.10 Atherosclerotic heart disease of native coronary artery without angina pectoris; I25.2 Old myocardial infarction; M79.7 Fibromyalgia; N18.9 Chronic kidney disease, unspecified; Z20.822 Contact with and (suspected) exposure to COVID-19; Z86.011 Personal history of benign neoplasm of the brain; Z86.16 Personal history of COVID-19; Z87.01 Personal history of pneumonia (recurrent); Z90.49 Acquired absence of other specified parts of digestive tract; J44.9 Chronic obstructive pulmonary disease, unspecified; E11.22 Type 2 diabetes mellitus with diabetic chronic kidney disease; F17.200 Nicotine dependence, unspecified, uncomplicated; K21.9 Gastro-esophageal reflux disease without esophagitis; I50.9 Heart failure, unspecified; G47.33 Obstructive sleep apnea (adult) (pediatric); Z74.09 Other reduced mobility; K59.00 Constipation, unspecified; Z79.84 Long term (current) use of oral hypoglycemic drugs; F25.9 Schizoaffective disorder, unspecified
CPT/HCPCS: 36415; 70030-TC; 71045; 73630; 73700; 80164; 83605; 83735; 84100; 84443; 85025; 85651; 87040; 87086; 93005; 94664; A4663; G0378; J0692; J1815; J2270; J2543; J3370; J3535; J7040; J7050; J7060; Q0161